=== PATIENT | female | born 1970 | race Caucasian/White ===

== ENCOUNTER 2016-06-11 04:59 | Inpatient (IN) | payer OTHER ==
[~2016-06-11] VITALS: Ht 162.6 cm; Wt 95.4 kg
[2016-06-11 05:49] LABS: CONTROL LINE HCG INT CTR LINE PRESENT
[2016-06-11 05:50] LABS: BASO # 0.1 K/mm3 (0.0-0.2); BASO % 0.5 % (0.0-1.0); EOS # 0.1 K/mm3 (0.0-0.50); LARGE UNSTAINED CELL # 0.1 K/mm3 (0.0-0.4); LARGE UNSTAINED CELL % 1.2 % (0.0-4.0); LYMPH # 1.7 K/mm3 (1.5-4.5); MEAN CORPUSCULAR HEMOGLOBIN 27.7 pg (27.0-33.0); MEAN CORPUSCULAR HGB CONC 32.8 g/dl (32.0-36.5); MEAN CORPUSCULAR VOLUME 84.3 fl (80.0-96.0); MONO # 0.5 K/mm3 (0.0-0.8); NEUTROPHILS % 78.2 % (36.0-66.0); PLATELET COUNT, AUTOMATED 399 k/mm3 (150-450); WHITE BLOOD COUNT 11.6 K/mm3 (4.0-10.0)
[2016-06-11 05:58] LABS: ALBUMIN 3.9 GM/DL (3.2-5.2); ALBUMIN/GLOBULIN RATIO 1.18 (1.00-1.93); ALKALINE PHOSPHATASE 104 U/L (45-117); ALT/SGPT 31 U/L (12-78); ANION GAP 9 MEQ/L (8-16); AST/SGOT 22 U/L (15-37); BILIRUBIN,DIRECT 0.2 MG/DL (0.0-0.2); BILIRUBIN,TOTAL 0.4 MG/DL (0.2-1.0); BLOOD UREA NITROGEN 9 MG/DL (7-18); CALCIUM LEVEL 9.1 MG/DL (8.5-10.1); CARBON DIOXIDE LEVEL 26 MEQ/L (21-32); CHLORIDE LEVEL 108 MEQ/L (98-107); GLOMERULAR FILTRATION RATE > 60.0 (>58); GLUCOSE, FASTING 112 MG/DL (70-105); SODIUM LEVEL 143 MEQ/L (136-145); TOTAL PROTEIN 7.2 GM/DL (6.4-8.2)
[2016-06-11] MEDS ORDERED: NS 1,000 ML IV ONE (06:00)
[2016-06-11 07:38] LABS: METHADONE URINE NEGATIVE (NEGATIVE)
[2016-06-11] MEDS ORDERED: LORazepam 2 MG/ML VIAL (J2060) IV STA ×2 (07:47→07:48)
[2016-06-11] MEDS: BACLOFEN 10 MG TAB PO SCH ×5 (09:00→20:30)
[2016-06-11] MEDS ORDERED: GABA600T PO (09:26)
[2016-06-11] MEDS ORDERED: AMIT25TA PO (09:26)
[2016-06-11] MEDS ORDERED: RIZA10TA2 PO (09:26)
[2016-06-11] MEDS ORDERED: RANI150T PO (09:26)
[2016-06-11] MEDS ORDERED: VYVA50CA PO (09:26)
[2016-06-11] MEDS ORDERED: LEVOTAB18 PO (09:26)
[2016-06-11] MEDS ORDERED: BACL-67 PO (09:26)
[2016-06-11] MEDS ORDERED: CYMB60CA3 PO (09:26)
[2016-06-11] MEDS ORDERED: TRAM50TA2 PO (09:26)
[2016-06-11] MEDS ORDERED: OMEP40CA2 PO (09:30)
[2016-06-11] MEDS ORDERED: ACETAMINOPHEN TAB 650MG DOSE (2X325MG) PO PRN (09:45)
--- NOTE | 2016-06-11 10:39 | ECGEPIP ---
Stationary ECG Study [facility] - ED Test Date: 2016-06-11 Pat Name: GENNARO OSEI Department: Room: - Gender: F Sound Ranging Crewmember: ConnellyB: 1970 Requested By: JULITO Hassan Order Number: [id number] Reading MD: Adán Aggarwal Measurements Intervals [place] Rate: 87 P: 50 ND: 176 QRS: 25 QRSD: 92 T: 30 QT: 353 QTc: 427 Interpretive Statements SINUS RHYTHM Electronically Signed On 06-11-2016 10:39:06 EDT by Adán Aggarwal
[2016-06-11 15:30] VITALS: BP 119/77
[2016-06-11] MEDS: ENOXAPARIN 40 MG/0.4 ML SYRINGE (J1650) SC SCH (15:57)
[2016-06-11] MEDS: NS 1,000 ML IV SCH ×3 (15:57→23:07)
[2016-06-11] MEDS: OMEPRAZOLE 20 MG CAP PO SCH (15:58)
[2016-06-11] MEDS: LORazepam 2 MG/ML VIAL (J2060) IV PRN ×2 (15:58→20:30)
[2016-06-11] MEDS: traMADol 50 MG TAB PO PRN ×2 (16:58→23:07)
[2016-06-11] MEDS ORDERED: traMADol 50 MG TAB PO PRN (17:00)
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
[2016-06-11 19:53] VITALS: BP 130/73
[2016-06-11] MEDS ORDERED: AMITRIPTYLINE 25 MG TAB PO SCH ×2 (21:00)
[2016-06-11 23:59] VITALS: BP 144/76
[2016-06-12] MEDS: LORazepam 2 MG/ML VIAL (J2060) IV PRN ×3 (01:46→12:35)
[2016-06-12 04:45] VITALS: BP 133/69
[2016-06-12] MEDS: NS 1,000 ML IV SCH ×2 (05:41→12:24)
[2016-06-12] MEDS: traMADol 50 MG TAB PO PRN ×2 (05:46→12:25)
[2016-06-12 05:49] LABS: MEAN CORPUSCULAR HEMOGLOBIN 28.7 pg (27.0-33.0); MEAN CORPUSCULAR HGB CONC 33.7 g/dl (32.0-36.5); MEAN CORPUSCULAR VOLUME 85.2 fl (80.0-96.0); RED CELL DISTRIBUTION WIDTH 13.3 % (11.5-14.5); WHITE BLOOD COUNT 6.6 K/mm3 (4.0-10.0)
[2016-06-12 05:51] LABS: BLOOD UREA NITROGEN 12 MG/DL (7-18); CREATININE FOR GFR 0.73 MG/DL (0.55-1.02); GLUCOSE, FASTING 113 MG/DL (70-105); MAGNESIUM LEVEL 1.8 MG/DL (1.8-2.4); POTASSIUM SERUM 3.7 MEQ/L (3.5-5.1); SODIUM LEVEL 143 MEQ/L (136-145)
[2016-06-12 06:01] LABS: CALCIUM LEVEL 7.8 MG/DL (8.5-10.1)
[2016-06-12 08:00] VITALS: BP 121/78
[2016-06-12] MEDS: OMEPRAZOLE 20 MG CAP PO SCH (08:41)
[2016-06-12] MEDS: ENOXAPARIN 40 MG/0.4 ML SYRINGE (J1650) SC SCH (08:41)
[2016-06-12] MEDS: BACLOFEN 10 MG TAB PO SCH ×3 (08:41→16:57)
[2016-06-12 09:03] LABS: ANION GAP 9 MEQ/L (8-16); CARBON DIOXIDE LEVEL 20 MEQ/L (21-32); CHLORIDE LEVEL 114 MEQ/L (98-107)
[2016-06-12 12:00] VITALS: BP 119/69
--- NOTE | 2016-06-12 15:38 | DSES ---
DATE OF ADMISSION: 06/11/2016 DATE OF DISCHARGE: 06/12/2016 PRIMARY CARE PROVIDER: Mari Martinez, nurse practitioner PAIN MANAGEMENT: Dr. Hawkins PSYCHIATRIST: Dr. Hawkins at [facility]. INPATIENT PSYCHIATRIST: Dr. Schaefer FINAL DIAGNOSES: 1. Encephalopathy secondary to medication induced. 2. Chronic pain. 3. Anxiety. 4. Posttraumatic stress disorder. 5. Grisel. HISTORY OF PRESENT ILLNESS: This is a 46-year-old female patient with underlying medical history of posttraumatic stress disorder, anxiety, chronic back pain with right arm nerve injury in the past, questionable history of attention deficit hyperactivity disorder. Patient was a poor historian and was brought in by police. Story taken from the patient. As per patient, she was driving home from work last night, did not feel right. 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 Eventually, the police brought her to the hospital. As per patient, the police found the patient's Vyvanse, tramadol, and also purple pill that the patient identified as Hydroxycut [id number] for weight loss. The patient states that she has been inconsistently taking her Vyvanse and started taking it yesterday because she wanted to perform better at work. Subsequently, she has not been feeling so well. In the emergency room, she was very anxious and restless with dilated pupils. Urine toxicology was obtained showing amphetamine and also benzodiazepine. Social work was consulted. Poison Control was contacted by the emergency room doctors, recommending monitoring for 12-24 hours and check creatine phosphokinases (CPKs). Otherwise, the patient denies any chest pain, pressure or discomfort, fevers or chills. Currently comfortable. HOSPITAL COURSE: The patient was admitted to the hospital. Telemetry, EKGs, and creatine phosphokinase (CPKs) were followed. Psychiatrist was consulted to see if patient needs inpatient mental health. Patient denies any suicidality but does report having depression. Patient's medication was initially held. Case discussed with Dr. Schaefer, psychiatrist. As per Dr. Schaefer, patient can be discharged with outpatient followup with primary care provider and psychiatrist in 72 hours to determine which medication is appropriate for the patient to take. From his psychiatric perspective, the patient is safe for discharge. Subsequently, arrangements are made for the patient to be discharged. VITAL SIGNS: Temperature 96.7, pulse 77, respiratory rate 18, blood pressure 119/69, pulse oximetry 100% on room air. LABORATORY DATA: WBC 6.6, hemoglobin and hematocrit 11.2/33.4, platelets 319. Chemistry: Sodium 143, potassium 3.7, chloride 114, bicarbonate 20, BUN 12, creatinine 0.73. Cardiac enzymes negative times three. HOME MEDICATIONS: The patient is on: - amitriptyline 25 mg by mouth at bedtime - Baclofen 20 mg by mouth four times a day - Cymbalta 60 mg by mouth daily - gabapentin 600 mg by mouth three times a day - control pill by mouth daily - omeprazole 40 mg by mouth daily - ranitidine 150 mg one tablet by mouth twice a day - tramadol 100 mg by mouth every six hours as needed - Vyvanse 50 mg by mouth daily, instructed to hold Vyvanse until sees primary care provider DISCHARGE INSTRUCTIONS: The patient is instructed to followup with primary care provider and psychiatrist in 72 hours. Return to the hospital if symptoms worsen or having thoughts of hurting herself or other people or with worsening depression. The patient is instructed to avoid driving.
== END 2016-06-12 17:12 | disposition home or self-care (01) | DRG 816 ==
LOC: EDBD 04:59 → M ED 08:52 → M ED INP 09:44 → M PCU 15:42
PROVIDERS: ADMIT Hospitalist; ATTEND Hospitalist
DX: T65.891A Toxic effect of other specified substances, accidental (unintentional), initial encounter (principal); G93.41 Metabolic encephalopathy; F41.9 Anxiety disorder, unspecified; F43.10 Post-traumatic stress disorder, unspecified; F30.9 Manic episode, unspecified; M54.5 Low back pain; Z79.899 Other long term (current) drug therapy

== ENCOUNTER → 2016-08-05 | Outpatient (CLI) | payer OTHER ==
[~2016-08-05] MED LIST: AMIT25TA PO; BACL-67 PO; CYMB60CA3 PO; GABA600T PO; LEVOTAB18 PO; OMEP40CA2 PO; RANI150T PO; RIZA10TA2 PO; TRAM50TA2 PO; VYVA50CA PO
[2016-08-05 15:11] LABS: BASO % 0.5 % (0.0-1.0); EOS # 0.3 K/mm3 (0.0-0.50); EOS % 4.7 % (0.0-3.0); LARGE UNSTAINED CELL # 0.1 K/mm3 (0.0-0.4); LARGE UNSTAINED CELL % 1.7 % (0.0-4.0); LYMPH # 2.1 K/mm3 (1.5-4.5); LYMPH % 27.1 % (24.0-44.0); MEAN CORPUSCULAR HEMOGLOBIN 29.1 pg (27.0-33.0); MEAN CORPUSCULAR VOLUME 85.6 fl (80.0-96.0); MONO # 0.4 K/mm3 (0.0-0.8); MONO % 5.9 % (0.0-5.0); NEUTROPHILS # 4.4 K/mm3 (1.8-7.7); NEUTROPHILS % 60.1 % (36.0-66.0); PLATELET COUNT, AUTOMATED 333 k/mm3 (150-450); RED CELL DISTRIBUTION WIDTH 13.7 % (11.5-14.5); WHITE BLOOD COUNT 7.4 K/mm3 (4.0-10.0)
[2016-08-05 15:27] LABS: ALBUMIN 3.6 GM/DL (3.2-5.2); ALBUMIN/GLOBULIN RATIO 1.06 (1.00-1.93); ALKALINE PHOSPHATASE 132 U/L (45-117); ALT/SGPT 38 U/L (12-78); ANION GAP 11 MEQ/L (8-16); AST/SGOT 21 U/L (15-37); BILIRUBIN,TOTAL 0.2 MG/DL (0.2-1.0); BLOOD UREA NITROGEN 21 MG/DL (7-18); CALCIUM LEVEL 8.9 MG/DL (8.5-10.1); CARBON DIOXIDE LEVEL 24 MEQ/L (21-32); CHLORIDE LEVEL 105 MEQ/L (98-107); CREATININE FOR GFR 0.74 MG/DL (0.55-1.02); GLOMERULAR FILTRATION RATE > 60.0 (>58); GLUCOSE, FASTING 111 MG/DL (70-105); POTASSIUM SERUM 4.1 MEQ/L (3.5-5.1); SODIUM LEVEL 140 MEQ/L (136-145)
== END ==
LOC: M LAB 13:49
PROVIDERS: ATTEND Nurse Practitioner Family
DX: Z00.00 Encounter for general adult medical examination without abnormal findings (principal)

== ENCOUNTER → 2016-12-12 | Outpatient (CLI) | payer OTHER ==
[~2016-12-12] MED LIST changes: -BACL-67 PO; +BACL1TAB9 PO; -VYVA50CA PO; +VYVA50CA4 PO
--- NOTE | 2016-12-12 11:53 | REPMRS ---
Patient History The patient states she had a clinical breast exam in 10/2016. No known family history of cancer. Taking hormonal contraceptives for 18 years. Digital Woman Screen Mammo: December 12, 2016 - Exam #: [id number] Bilateral CC and MLO view(s) were taken. Technologist: Humaira Torres, Technologist FINDINGS: There are scattered fibroglandular densities. There is no evidence of cancer on this mammogram. ASSESSMENT: BI-RADS/ACR category 2 mammogram. Benign finding(s). Recommendation Routine screening mammogram of both breasts in 1 year (for women over age 40). This mammogram was interpreted with the aid of an FDA-approved computer-aided dectection system. Electronically Signed By: Teja Pantoja MD 12/12/16 [id number]
== END ==
LOC: M WHC 10:53
PROVIDERS: ATTEND Midwife
DX: Z12.31 Encounter for screening mammogram for malignant neoplasm of breast (principal)

== ENCOUNTER → 2017-01-28 | Outpatient (REF) | LOC: M LAB 14:12 | PROVIDERS: ATTEND Nurse Practitioner Adult Health | DX: Z00.00 Encounter for general adult medical examination without abnormal findings (principal) ==

== ENCOUNTER 2017-02-03 19:12 | Emergency (ER) | payer OTHER ==
[~2017-02-03] VITALS: Ht 162.6 cm; Wt 100.0 kg
[2017-02-03] MEDS ORDERED: ZYRT10CA PO (19:34)
[2017-02-03] MEDS ORDERED: CELE1CAP88 PO (19:34)
[2017-02-03] MEDS ORDERED: B121000T PO (19:34)
[2017-02-03] MEDS ORDERED: TOPA50TA8 PO (19:34)
[2017-02-03 21:10] VITALS: BP 148/86
== END 2017-02-03 21:11 | disposition home or self-care (01) ==
LOC: M ED 19:12
DX: M54.42 Lumbago with sciatica, left side (principal)
CPT/HCPCS: 96372; 99283; J3360

== ENCOUNTER → 2017-03-05 | Outpatient (CLI) | payer OTHER ==
[~2017-03-05] MED LIST changes: +B121000T PO; +CELE1CAP88 PO; +TOPA50TA8 PO; +ZYRT10CA PO
== END ==
LOC: M LAB 11:53
PROVIDERS: ATTEND Nurse Practitioner Family
DX: L65.9 Nonscarring hair loss, unspecified (principal)

== ENCOUNTER → 2017-05-02 | Outpatient (REF) | payer OTHER | LOC: M LAB REF 15:12 | DX: J11.1 Influenza due to unidentified influenza virus with other respiratory manifestations (principal) ==

== ENCOUNTER 2017-05-19 09:04 | Emergency (ER) | payer OTHER | END 2017-05-19 11:48 | disposition home or self-care (01) | LOC: M ED 09:04 | DX: R09.1 Pleurisy (principal); H68.002 Unspecified Eustachian salpingitis, left ear; G89.29 Other chronic pain; M54.9 Dorsalgia, unspecified; G43.909 Migraine, unspecified, not intractable, without status migrainosus; Z79.899 Other long term (current) drug therapy | CPT/HCPCS: 71046 ==

== ENCOUNTER → 2017-07-04 | Outpatient (CLI) | payer OTHER ==
[2017-07-04 14:14] LABS: BASO # 0.1 10^3/uL (0.0-0.2); BASO % 0.5 % (0.0-1.0); EOS # 0.3 10^3/uL (0.0-0.50); EOS % 3.2 % (0.0-3.0); HEMATOCRIT 40.4 % (36.0-47.0); IMMATURE GRANULOCYTE % 0.4 % (0-3.0); LYMPH # 2.8 10^3/uL (1.5-4.5); LYMPH % 29.6 % (24.0-44.0); MEAN CORPUSCULAR HGB CONC 32.2 g/dl (32.0-36.5); MEAN CORPUSCULAR VOLUME 86.9 fl (80.0-96.0); MONO # 0.8 10^3/uL (0.0-0.8); MONO % 8.6 % (0.0-5.0); NEUTROPHILS # 5.5 10^3/uL (1.8-7.7); NEUTROPHILS % 57.7 % (36.0-66.0); PLATELET COUNT, AUTOMATED 398 10^3/uL (150-450); RED BLOOD COUNT 4.65 10^6/uL (4.00-5.40); WHITE BLOOD COUNT 9.5 10^3/uL (4.0-10.0)
[2017-07-04 14:16] LABS: APPEARANCE, URINE CLEAR (CLEAR); BACTERIA, URINE AUTO 2+ (NEGATIVE); BILIRUBIN, URINE AUTO NEGATIVE (NEGATIVE); BLOOD, URINE BLOOD NEGATIVE (NEGATIVE); COLOR, URINE COLORLESS (YELLOW); GLUCOSE, URINE (UA) AUTO NEGATIVE (NEGATIVE); KETONE, URINE AUTO NEGATIVE (NEGATIVE); LEUKOCYTE ESTERASE, URINE AUTO NEGATIVE (NEGATIVE); NITRITE, URINE AUTO NEGATIVE (NEGATIVE); PROTEIN, URINE AUTO NEGATIVE (NEGATIVE); RBC, URINE AUTO 1 /HPF (0-3); SPECIFIC GRAVITY URINE AUTO 1.002 (1.002-1.035); SQUAMOUS EPITHELIAL CELL UR AU 0 /HPF (0-6); UROBILINOGEN, URINE AUTO 0.2 mg/dL (0.0-2.0); WBC, URINE AUTO 0 /HPF (0-3)
[2017-07-04 14:50] LABS: ALBUMIN 3.7 GM/DL (3.2-5.2); ALBUMIN/GLOBULIN RATIO 1.16 (1.00-1.93); ALKALINE PHOSPHATASE 91 U/L (45-117); ALT/SGPT 29 U/L (12-78); ANION GAP 6 MEQ/L (8-16); AST/SGOT 16 U/L (7-37); BILIRUBIN,TOTAL 0.2 MG/DL (0.2-1.0); BLOOD UREA NITROGEN 14 MG/DL (7-18); CALCIUM LEVEL 8.8 MG/DL (8.5-10.1); CARBON DIOXIDE LEVEL 26 MEQ/L (21-32); CHLORIDE LEVEL 108 MEQ/L (98-107); GLOMERULAR FILTRATION RATE > 60.0 (>58); GLUCOSE, FASTING 87 MG/DL (70-100); POTASSIUM SERUM 4.7 MEQ/L (3.5-5.1); SODIUM LEVEL 140 MEQ/L (136-145); TOTAL PROTEIN 6.9 GM/DL (6.4-8.2)
[2017-07-04 14:56] LABS: HEPATITIS B SURFACE ANTIBODY NEGATIVE (POSITIVE)
[2017-07-04 15:06] LABS: HEPATITIS B SURFACE ANTIGEN NEGATIVE (NEGATIVE)
[2017-07-04 15:35] LABS: HEPATITIS C VIRUS ABY INDEX < 0.0 INDEX (<0.8)
[2017-07-05 08:06] LABS: HEPATITIS A IgG TOTAL Positive (Negative)
== END ==
LOC: M LAB 13:27
DX: Z51.81 Encounter for therapeutic drug level monitoring (principal); Z79.891 Long term (current) use of opiate analgesic; H65.23 Chronic serous otitis media, bilateral; Z04.9 Encounter for examination and observation for unspecified reason
CPT/HCPCS: 80053

== ENCOUNTER → 2018-02-19 | Outpatient (CLI) | payer OTHER | LOC: M RAD 15:23 | DX: Z12.31 Encounter for screening mammogram for malignant neoplasm of breast (principal) | CPT/HCPCS: 77067 ==

== ENCOUNTER 2018-09-08 12:15 | Outpatient (RCR) | payer MEDICAID, OTHER ==
[~2018-09-08 12:15] MED LIST changes: +AUGM875T28 PO; +DIFL150T PO; -GABA600T PO; +GABA600T4 PO; +NEUR800T PO; +PRED20TA PO; +TOPA100T12 PO
== END 2018-09-13 ==
LOC: M PT 12:15
PROVIDERS: ATTEND Anesthesiology Pain Medicine
DX: M79.7 Fibromyalgia (principal)

== ENCOUNTER 2018-09-24 12:50 | Outpatient (RCR) | payer OTHER | END 2018-10-14 | LOC: M PT 12:50 | PROVIDERS: ATTEND Anesthesiology Pain Medicine | DX: Z51.89 Encounter for other specified aftercare (principal); M79.10 Myalgia, unspecified site ==

== ENCOUNTER → 2018-12-07 | Outpatient (REF) | payer OTHER ==
[2018-12-07 22:01] LABS: INFLUENZA A AMPLIFICATION NEGATIVE (NEGATIVE); INFLUENZA B AMPLIFICATION NEGATIVE (NEGATIVE)
== END ==
LOC: M LAB REF 14:05
PROVIDERS: ATTEND Physician Assistant Medical
DX: J11.1 Influenza due to unidentified influenza virus with other respiratory manifestations (principal)

== ENCOUNTER → 2019-01-15 | Outpatient (CLI) | payer OTHER ==
[~2019-01-15] MED LIST changes: -OMEP40CA2 PO; +OMEP40CA97 PO
[2019-01-15 12:21] LABS: APPEARANCE, URINE HAZY (CLEAR); BACTERIA, URINE AUTO 3+ (NEGATIVE); BILIRUBIN, URINE AUTO NEGATIVE (NEGATIVE); BLOOD, URINE BLOOD NEGATIVE (NEGATIVE); COLOR, URINE YELLOW (YELLOW); GLUCOSE, URINE (UA) AUTO NEGATIVE (NEGATIVE); KETONE, URINE AUTO NEGATIVE (NEGATIVE); LEUKOCYTE ESTERASE, URINE AUTO NEGATIVE (NEGATIVE); MUCUS, URINE SMALL (NEGATIVE); NITRITE, URINE AUTO NEGATIVE (NEGATIVE); PROTEIN, URINE AUTO NEGATIVE (NEGATIVE); RBC, URINE AUTO 4 /HPF (0-3); SPECIFIC GRAVITY URINE AUTO 1.018 (1.002-1.035); SQUAMOUS EPITHELIAL CELL UR AU 8 /HPF (0-6); UROBILINOGEN, URINE AUTO 0.2 mg/dL (0.0-2.0); WBC, URINE AUTO 3 /HPF (0-3)
[2019-01-15 12:26] LABS: BASO # 0.1 10^3/uL (0.0-0.2); BASO % 0.7 % (0.0-1.0); EOS # 0.4 10^3/uL (0.0-0.5); EOS % 6.2 % (0.0-3.0); LYMPH # 2.6 10^3/uL (1.5-5.0); LYMPH % 37.4 % (24.0-44.0); MEAN CORPUSCULAR HEMOGLOBIN 27.1 pg (27.0-33.0); MEAN CORPUSCULAR VOLUME 87.7 fl (80.0-96.0); MONO # 0.8 10^3/uL (0.0-0.8); MONO % 11.3 % (0.0-5.0); NEUTROPHILS # 3.1 10^3/uL (1.5-8.5); NEUTROPHILS % 44.3 % (36.0-66.0); PLATELET COUNT, AUTOMATED 359 10^3/uL (150-450); RED BLOOD COUNT 4.79 10^6/uL (4.00-5.40); WHITE BLOOD COUNT 6.9 10^3/uL (4.0-10.0)
[2019-01-15 12:52] LABS: HEMOGLOBIN A1c 5.5 %
[2019-01-15 13:15] LABS: ALBUMIN 3.3 GM/DL (3.2-5.2); ALT/SGPT 28 U/L (12-78); BILIRUBIN,TOTAL 0.3 MG/DL (0.2-1.0); BLOOD UREA NITROGEN 13 MG/DL (7-18); CALCIUM LEVEL 8.9 MG/DL (8.5-10.1); CARBON DIOXIDE LEVEL 26 MEQ/L (21-32); CHLORIDE LEVEL 107 MEQ/L (98-107); CHOLESTEROL LEVEL 231 MG/DL (<200); CHOLESTEROL RISK RATIO 4.812 (<5); CREATININE FOR GFR 0.74 MG/DL (0.55-1.30); FREE T4 0.92 NG/DL (0.76-1.46); GLOMERULAR FILTRATION RATE > 60.0 (>58); GLUCOSE, FASTING 81 MG/DL (70-100); HDL CHOLESTEROL 48 MG/DL (>40); LDL CHOLESTEROL 162 MG/DL (<100); NON-HDL-C 183 MG/DL; POTASSIUM SERUM 4.7 MEQ/L (3.5-5.1); SODIUM LEVEL 138 MEQ/L (136-145); TOTAL 25(OH) VITAMIN D 42.9 NG/ML (30.0-100.0); TOTAL PROTEIN 6.6 GM/DL (6.4-8.2); TRIGLYCERIDES LEVEL 103 MG/DL (<150)
== END ==
LOC: M LAB 11:44
PROVIDERS: ATTEND Nurse Practitioner Family
DX: Z13.9 Encounter for screening, unspecified (principal)

== ENCOUNTER → 2019-05-05 | Outpatient (CLI) | payer OTHER, SELFPAY ==
--- NOTE | 2019-05-05 13:59 | REPMRS ---
Patient History The patient states she had a clinical breast exam in 2018. No known family history of cancer. Taking hormonal contraceptives for 18 years. Digital Woman Screen Mammo: May 05, 2019 - Exam #: [id number] Bilateral CC and MLO view(s) were taken. Technologist: Debbie Chisholm, Technologist Prior study comparison: February 19, 2018, bilateral digital mammo screening bilat, performed at [facility]. December 12, 2016, digital woman screen mammo performed at [facility]. FINDINGS: There are scattered fibroglandular densities. There has been no change in the appearance of the mammogram from the prior studies. There is a mild amount of scattered fibroglandular density which is fairly symmetric. There is no interval development of dominant mass, architectural distortion, or grouped microcalcification suggestive of malignancy. 3-D tomosynthesis shows no additional findings. Assessment: BI-RADS/ACR category 1 mammogram. Negative Mammogram. Recommendation Routine screening mammogram of both breasts in 1 year (for women over age 40). This patient's Lifetime Breast Cancer Risk is estimated at 12.8 %. This mammogram was interpreted with the aid of an FDA-approved computer-aided dectection system. Electronically Signed By: Maurice Astudillo MD 05/05/19 [id number]
== END ==
LOC: M WHC 12:50
PROVIDERS: ATTEND Physician Assistant
DX: Z12.31 Encounter for screening mammogram for malignant neoplasm of breast (principal); Z79.3 Long term (current) use of hormonal contraceptives

== ENCOUNTER → 2019-06-24 | Outpatient (REF) | payer OTHER, MEDICAID ==
[2019-06-24 17:25] LABS: BASO % 0.5 % (0.0-1.0); EOS # 0.3 10^3/uL (0.0-0.5); EOS % 4.6 % (0.0-3.0); HEMATOCRIT 43.7 % (36.0-47.0); HEMOGLOBIN 13.9 g/dl (12.0-15.5); LYMPH # 2.7 10^3/uL (1.5-5.0); MEAN CORPUSCULAR HEMOGLOBIN 27.3 pg (27.0-33.0); MEAN CORPUSCULAR HGB CONC 31.8 g/dl (32.0-36.5); MEAN CORPUSCULAR VOLUME 85.7 fl (80.0-96.0); MONO # 0.6 10^3/uL (0.0-0.8); MONO % 9.9 % (0.0-5.0); NEUTROPHILS # 2.7 10^3/uL (1.5-8.5); NEUTROPHILS % 42.7 % (36.0-66.0); PLATELET COUNT, AUTOMATED 423 10^3/uL (150-450); WHITE BLOOD COUNT 6.3 10^3/uL (4.0-10.0)
[2019-06-24 17:30] LABS: ALBUMIN 3.4 GM/DL (3.2-5.2); ALT/SGPT 29 U/L (12-78); BILIRUBIN,TOTAL 0.4 MG/DL (0.2-1.0); BLOOD UREA NITROGEN 15 MG/DL (7-18); CALCIUM LEVEL 8.8 MG/DL (8.5-10.1); CARBON DIOXIDE LEVEL 28 MEQ/L (21-32); CHLORIDE LEVEL 103 MEQ/L (98-107); CHOLESTEROL LEVEL 250 MG/DL (<200); CHOLESTEROL RISK RATIO 5.208 (<5); CREATININE FOR GFR 0.94 MG/DL (0.55-1.30); GLOMERULAR FILTRATION RATE > 60.0 (>58); GLUCOSE, FASTING 82 MG/DL (70-100); HDL CHOLESTEROL 48 MG/DL (>40); LDL CHOLESTEROL 183 MG/DL (<100); NON-HDL-C 202 MG/DL; POTASSIUM SERUM 4.1 MEQ/L (3.5-5.1); SODIUM LEVEL 138 MEQ/L (136-145); TOTAL PROTEIN 6.7 GM/DL (6.4-8.2); TRIGLYCERIDES LEVEL 95 MG/DL (<150)
== END ==
LOC: M LAB REF 16:54
PROVIDERS: ATTEND Nurse Practitioner Family
DX: E78.5 Hyperlipidemia, unspecified (principal); Z13.9 Encounter for screening, unspecified; K21.9 Gastro-esophageal reflux disease without esophagitis

== ENCOUNTER 2019-09-07 21:33 | Observation (INO) | payer MEDICAID, OTHER ==
[~2019-09-07 21:33] MED LIST changes: -AMIT25TA PO; +AMIT25TA17 PO
[2019-09-07] MEDS ORDERED: NALOXONE 2MG/2ML SYRINGE (J2310 PER 1MG) As Ordered ONE (21:40)
[2019-09-07] MEDS ORDERED: NALOXONE 2MG/2ML SYRINGE (J2310 PER 1MG) IV STA (21:41)
[2019-09-07] MEDS ORDERED: ONDANSETRON 4MG/2ML VIAL As Ordered ONE (21:43)
[2019-09-07] MEDS ORDERED: HALOPERIDOL 5MG/ML VIAL (J1630 PER 1) IM STA ×2 (21:51→22:24)
[2019-09-07] MEDS ORDERED: diphenhydrAMINE 50MG/ML VIAL (J1200) IM STA (21:51)
[2019-09-07] MEDS ORDERED: NS 1,000 ML IV ONE (22:00)
[2019-09-07 22:11] LABS: BASO # 0.1 10^3/uL (0.0-0.2); BASO % 0.3 % (0.0-1.0); EOS # 0.6 10^3/uL (0.0-0.5); EOS % 4.1 % (0.0-3.0); HEMATOCRIT 44.9 % (36.0-47.0); HEMOGLOBIN 14.4 g/dl (12.0-15.5); LYMPH # 3.4 10^3/uL (1.5-5.0); LYMPH % 22.4 % (24.0-44.0); MEAN CORPUSCULAR HEMOGLOBIN 27.2 pg (27.0-33.0); MEAN CORPUSCULAR HGB CONC 32.1 g/dl (32.0-36.5); MEAN CORPUSCULAR VOLUME 84.9 fl (80.0-96.0); MONO # 0.9 10^3/uL (0.0-0.8); MONO % 6.2 % (0.0-5.0); NEUTROPHILS % 66.7 % (36.0-66.0); PLATELET COUNT, AUTOMATED 399 10^3/uL (150-450); RED BLOOD COUNT 5.29 10^6/uL (4.00-5.40)
[2019-09-07 22:40] LABS: BILIRUBIN,DIRECT 0.2 MG/DL (0.0-0.2); BILIRUBIN,TOTAL 0.5 MG/DL (0.2-1.0); CALCIUM LEVEL 9.6 MG/DL (8.5-10.1); CREATININE FOR GFR 1.23 MG/DL (0.55-1.30); ETHYL ALCOHOL (ETHANOL) 0.005 % (0.000-0.010); FREE THYROXINE INDEX 3.9 % (1.3-4.8); GLOMERULAR FILTRATION RATE 49.4 (>58); POTASSIUM SERUM 4.3 MEQ/L (3.5-5.1); THYROID STIMULATING HORMONE 3.45 uIU/ML (0.358-3.740); THYROXINE (T4) 15.1 UG/DL (4.5-12.0); TOTAL PROTEIN 7.5 GM/DL (6.4-8.2)
[2019-09-07] MEDS ORDERED: chlorproMAZINE INJ 50MG/2ML AMP (J3230) IM STA (23:14)
[2019-09-07 23:33] LABS: AMPHETAMINES LEVEL URINE POSITIVE (NEGATIVE); BARBITURATES URINE NEGATIVE (NEGATIVE); BENZODIAZEPINES URINE POSITIVE (NEGATIVE); CANNABINOIDS URINE NEGATIVE (NEGATIVE); COCAINE METABOLITE URINE NEGATIVE (NEGATIVE); METHADONE URINE NEGATIVE (NEGATIVE); OPIATES URINE POSITIVE (NEGATIVE); PHENCYCLIDINE URINE NEGATIVE (NEGATIVE)
[2019-09-07] MEDS ORDERED: ATOR1TAB19 PO (23:35)
[2019-09-07] MEDS ORDERED: CELE1CAP11 PO (23:35)
[2019-09-07] MEDS ORDERED: BACLOFEN PO (23:35)
[2019-09-07] MEDS ORDERED: OMEP-221 PO (23:35)
[2019-09-07] MEDS ORDERED: GABA-845 PO (23:38)
[2019-09-07] MEDS ORDERED: AMIT25TA17 PO (23:38)
[2019-09-07] MEDS ORDERED: DULO1CAP6 PO (23:38)
[2019-09-07] MEDS ORDERED: PRED20TA PO (23:38)
[2019-09-07] MEDS ORDERED: TRAM50TA2 PO (23:38)
[2019-09-07] MEDS ORDERED: RIZA10TA58 PO (23:38)
[2019-09-08] MEDS ORDERED: ADDE30CA3 PO (00:11)
[2019-09-08] MEDS ORDERED: CLON1TAB8 PO (00:11)
[2019-09-08] MEDS ORDERED: BACL1TAB9 PO (00:11)
[2019-09-08] MEDS ORDERED: COMMENTS (01:02)
--- NOTE | 2019-09-08 01:05 | REPVR ---
PROCEDURE INFORMATION: Exam: CT Head Without Contrast Exam date and time: 09/07/2019 11:55 PM Age: 49 years old Clinical indication: Altered mental status/memory loss; Confusion or disorientation; Additional info: AMS TECHNIQUE: Imaging protocol: Computed tomography of the head without contrast. Axial and coronal reformatted images were created and reviewed. Radiation optimization: All CT scans at this facility use at least one of these dose optimization techniques: automated exposure control; mA and/or kV adjustment per patient size (includes targeted exams where dose is matched to clinical indication); or iterative reconstruction. COMPARISON: No relevant prior studies available. FINDINGS: Brain: No CT evidence of acute intracranial hemorrhage or acute territorial infarction. No significant mass effect or midline shift. Basal cisterns patent. Ventricles: Normal in size and configuration. Bones/joints: No acute osseous abnormality. Sinuses: Grossly unremarkable. Mastoid air cells: Grossly unremarkable. Soft tissues: Grossly unremarkable. IMPRESSION: 1. No CT evidence of acute intracranial pathology. 2. Additional findings, as above. Electronically signed by: Lonny Nice On 09/08/2019 01:04:52 AM
[2019-09-08] MEDS ORDERED: ACETAMINOPHEN TAB 650MG DOSE (2X325MG) PO PRN (03:00)
[2019-09-08] MEDS ORDERED: D5W/0.9% SODIUM CHLORIDE 1,000 ML IV SCH (03:15)
--- NOTE | 2019-09-08 03:19 | HPEPDOC ---
General Date of Admission 09/08/19 Date of Service: Sep 08, 2019 Chief Complaint The patient is a 49-year-old female admitted with a reason for visit of AMS. Source: Family, EMS Exam Limitations: Clinical conditions, Intoxication Timing/Duration: 24 hours Severity: Mild Associated Symptoms: Unobtainable History of Present Illness Patient is 49 years old female with past medical history of substance abuse presented to the hospital with altered mental status secondary to intoxication. According to family patient developed bizarre behavior in the evening, she became agitated and talked nonsense. She was brought to the emergency room where she was agitated and restless. Patient was sedated with Haldol and Benadryl. Also she received a dose of Narcan. When I saw patient she was somnolent and not follows commands. Patient was found to have positive U tox for opioids, amphetamines and benzodiazepines Home Medications Scheduled Amitriptyline HCl (Amitriptyline HCl) 25 Mg Tablet, 25 MG PO QPM, (Reported) Atorvastatin Calcium (Atorvastatin Calcium) 10 Mg Tablet, 10 MG PO DAILY, (Reported) Celecoxib (Celecoxib) 400 Mg Capsule, 400 MG PO BID, (Reported) Dextroamphetamine/Amphetamine (Adderall Xr 30 mg Capsule) 30 Mg Cap.er.24h, 30 MG PO DAILY, (Reported) Duloxetine Hcl (Duloxetine HCl) 60 Mg Capsule.dr, 60 MG PO DAILY, (Reported) Gabapentin (Gabapentin) 400 Mg Capsule, 400 MG PO TID, (Reported) Omeprazole (Omeprazole) 40 Mg Capsule.dr, 40 MG PO DAILY, (Reported) Rizatriptan Benzoate (Rizatriptan) 10 Mg Tab.rapdis, 10 MG PO ASDIRECTED, (Reported) Scheduled PRN Baclofen (Baclofen) 20 Mg Tablet, 20 MG PO QID PRN for MUSCLE SPASMS, (Reported) Clonazepam (Clonazepam) 1 Mg Tablet, 1 MG PO BID PRN for ANXIETY/AGITATION, (R eported) Tramadol HCl (Tramadol HCl) 50 Mg Tablet, 50 MG PO Q4H PRN for pain, (Reported) Miscellaneous Medications [Comments] , (Reported) MED REC LYNN WITH EXTERNAL MED HISTORY AND PT'S BOTTLE'S BROUGHT IN BY SON Allergies Coded Allergies: Unobtainable (Unverified , 09/07/19) Past Medical History Medical History Polysubstance abuse Family History Unable to obtain due to somnolence of the patient Social History * Smoker: other (Unable to obtain due to somnolence of the patient) Alcohol: other (Unable to obtain due to somnolence of the patient) Drugs: heroin, other (amphetamines) A-FIB/CHADSVASC A-FIB History Current/History of A-Fib/PAF?: No Current PO Anticoag Therapy: No Review of Systems Constitutional: Reports: Lethargy, Other (Unable to obtain due to somnolence of the patient) Physical Examination General Exam: Positive: Other (somnolent) Eye Exam: Positive: Other Eye Symptoms (mydriasis bilaterally) ENT Exam: Positive: Atraumatic Neck Exam: Positive: Supple; Negative: JVD Chest Exam: Positive: Clear to auscultation Heart Exam: Positive: Rate Normal Telemetry: Positive: No significant arrhythmia Abdomen Exam: Positive: Normal bowel sounds Extremity Exam: Negative: Clubbing, Cyanosis Skin Exam: Positive: Nl turgor and temperature Neuro Exam: Positive: Reflexes 2+ Psych Exam: Positive: Other (somnolent) Vital Signs Vital Signs Date Time Temp Pulse Resp B/P (MAP) Pulse Ox O2 Delivery O2 Flow Rate FiO2 09/07/19 23:30 97.2 91 18 156/89 97 Laboratory Data Labs 24H Laboratory Tests 2 09/07/19 21:54: Immature Granulocyte % (Auto) 0.3, Neutrophils (%) (Auto) 66.7H, Lymphocytes (%) (Auto) 22.4L, Monocytes (%) (Auto) 6.2H, Eosinophils (%) (Auto) 4.1H, Basophils (%) (Auto) 0.3, Neutrophils # (Auto) 10.0H, Lymphocytes # (Auto) 3.4, Monocytes # (Auto) 0.9H, Eosinophils # (Auto) 0.6H, Basophils # (Auto) 0.1, Nucleated Red Blood Cells % (auto) 0.0, Anion Gap 8, Glomerular Filtration Rate 49.4L, Calcium Level 9.6, Total Bilirubin 0.5, Direct Bilirubin 0.2, Aspartate Amino Transf (AST/SGOT) 24, Alanine Aminotransferase (ALT/SGPT) 28, Alkaline Phosphatase 111, Total Creatine Kinase 160, Total Protein 7.5, Albumin 4.0, Albumin/Globulin Ratio 1.1L, Thyroid Stimulating Hormone (TSH) 3.450, Free Thyroxine Index 3.9, Thyroxine (T4) 15.1H, Triiodothyronine (T3) Uptake 26L, Ethyl Alcohol Level 0.005 09/07/19 22:50: Urine Opiates Screen POSITIVEH, Urine Methadone Screen NEGATIVE, Urine Barbiturates Screen NEGATIVE, Urine Phencyclidine Screen NEGATIVE, Urine Amphetamines Screen POSITIVEH, Urine Benzodiazepines Screen POSITIVEH, Urine Cocaine Metabolite Screen NEGATIVE, Urine Cannabinoids Screen NEGATIVE CBC/BMP Laboratory Tests 09/07/19 21:54 Assessment/Plan Patient is 49 years old female with past medical history of substance abuse presented to the hospital with altered mental status secondary to intoxication. According to family patient developed bizarre behavior in the evening, she became agitated and talked nonsense. She was brought to the emergency room where she was agitated and restless. Patient was sedated with Haldol and Benadryl. Also she received a dose of Narcan. When I saw patient she was somnolent and not follows commands. Patient was found to have positive U tox for opioids, amphetamines and benzodiazepines Problems (1) Acute metabolic encephalopathy Status: Acute Problem Text: Secondary to polypharmacy superimposed with polysubstance abuse CT head negative for stroke or acute bleed Neuro check every 4 hours Telemetry (2) Drug abuse Status: Acute Problem Text: U tox showed positive level of benzodiazepines, opioids, amphetamines. 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
[2019-09-08] MEDS ORDERED: ONDANSETRON 4MG/2ML VIAL IV ONE (03:45)
[2019-09-08 04:00] VITALS: BP 143/81
[2019-09-08 06:00] VITALS: BP 140/76
[2019-09-08] MEDS: HEPARIN SOD (PORCINE) 5000UNITS/ML 1ML VIAL/SYRINGE SC SCH ×2 (08:20→21:18)
[2019-09-08] MEDS: MULTIVITAMINS/MINERALS THERAP 1 TAB PO SCH (11:32)
[2019-09-08] MEDS: THIAMINE 100 MG TAB PO SCH (11:32)
[2019-09-08] MEDS: FOLIC ACID 1 MG TAB PO SCH (11:33)
[2019-09-08 14:00] VITALS: BP 129/87
[2019-09-08 22:00] VITALS: BP 127/77
[2019-09-09 06:00] VITALS: BP 119/66
[2019-09-09] MEDS ORDERED: CIPROFLOXACIN 500MG TABLET PO SCH (06:00)
[2019-09-09 06:48] LABS: BASO % 0.5 % (0.0-1.0); EOS # 0.4 10^3/uL (0.0-0.5); EOS % 6.1 % (0.0-3.0); HEMATOCRIT 40.3 % (36.0-47.0); HEMOGLOBIN 12.8 g/dl (12.0-15.5); LYMPH # 2.6 10^3/uL (1.5-5.0); LYMPH % 40.1 % (24.0-44.0); MEAN CORPUSCULAR HEMOGLOBIN 27.1 pg (27.0-33.0); MEAN CORPUSCULAR HGB CONC 31.8 g/dl (32.0-36.5); MEAN CORPUSCULAR VOLUME 85.2 fl (80.0-96.0); MONO # 0.4 10^3/uL (0.0-0.8); MONO % 6.7 % (0.0-5.0); NEUTROPHILS % 46.4 % (36.0-66.0); PLATELET COUNT, AUTOMATED 362 10^3/uL (150-450); RED BLOOD COUNT 4.73 10^6/uL (4.00-5.40); WHITE BLOOD COUNT 6.4 10^3/uL (4.0-10.0)
[2019-09-09 07:22] LABS: ALBUMIN 2.9 GM/DL (3.2-5.2); ALT/SGPT 23 U/L (12-78); BILIRUBIN,TOTAL 0.3 MG/DL (0.2-1.0); BLOOD UREA NITROGEN 11 MG/DL (7-18); CALCIUM LEVEL 8.8 MG/DL (8.5-10.1); CARBON DIOXIDE LEVEL 25 MEQ/L (21-32); CHLORIDE LEVEL 109 MEQ/L (98-107); CREATININE FOR GFR 0.92 MG/DL (0.55-1.30); GLOMERULAR FILTRATION RATE > 60.0 (>58); GLUCOSE, FASTING 95 MG/DL (70-100); MAGNESIUM LEVEL 1.8 MG/DL (1.8-2.4); POTASSIUM SERUM 4.4 MEQ/L (3.5-5.1); SODIUM LEVEL 141 MEQ/L (136-145); TOTAL PROTEIN 5.8 GM/DL (6.4-8.2)
[2019-09-09] MEDS: FOLIC ACID 1 MG TAB PO SCH (08:34)
[2019-09-09] MEDS: MULTIVITAMINS/MINERALS THERAP 1 TAB PO SCH (08:34)
[2019-09-09] MEDS: THIAMINE 100 MG TAB PO SCH (08:34)
[2019-09-09] MEDS: HEPARIN SOD (PORCINE) 5000UNITS/ML 1ML VIAL/SYRINGE SC SCH (08:35)
[2019-09-09] MEDS ORDERED: CIPR-249 PO (10:00)
--- NOTE | 2019-09-09 11:28 | DS.PDOC ---
Discharge Summary General Date of Admission Sep 07, 2019 at 21:34 Date of Discharge 09/09/19 Discharge Summary PROCEDURES PERFORMED DURING STAY: None. ADMITTING DIAGNOSES: 1. Substance abuse, altered mental status. DISCHARGE DIAGNOSES: 1. Toxic encephalopathy, polysubstance abuse. COMPLICATIONS/CHIEF COMPLAINT: Drug Abuse. HISTORY OF PRESENT ILLNESS: Patient is 49 years old female with past medical h istory of substance abuse presented to the hospital with altered mental status secondary to intoxication. According to family patient developed bizarre behavior in the evening, she became agitated and talked nonsense. She was brought to the emergency room where she was agitated and restless. Patient was sedated with Haldol and Benadryl. Also she received a dose of Narcan. When I saw patient she was somnolent and not follows commands. Patient was found to have positive U tox for opioids, amphetamines and benzodiazepines. HOSPITAL COURSE: Patient was admitted with the altered mental status secondary to toxic encephalopathy secondary to polysubstance abuse. Patient was sedated in the emergency room with Haldol and Benadryl also receive a dose of Narcan. When I examined patient yesterday. She is still was somnolent but it is started eating food has IV fluids were discontinued and she was started on regular diet and she was monitored overnight. Patient did not develop any symptoms of withd umu. She is comfortable, very cooperative and her laboratory work is essentially within normal limits and she'll be discharged home today. Extensive drug abuse. Counseling was done at the bedside and she understands that she has to seek help with some community-based drug rehabilitation as outpatient. DISCHARGE MEDICATIONS: Please see below. ALLERGIES: Please see below. PHYSICAL EXAMINATION ON DISCHARGE: VITAL SIGNS: Please see below. GENERAL: Within normal limits HEENT: PERRLA. Extraocular muscles intact NECK: Within normal limits CARDIOVASCULAR EXAMINATION: S1, S2, regular RESPIRATORY EXAMINATION: Clear to A&P ABDOMINAL EXAMINATION: Benign EXTREMITIES: Clubbing, cyanosis, edema SKIN: Normal NEUROLOGICAL EXAMINATION: . No focal motor sensory deficit in and of deficit. Alert, oriented 3 PSYCHIATRIC EXAMINATION: Normal LABORATORY DATA: Please see below. IMAGING: CT head:IMPRESSION: 1. No CT evidence of acute intracranial pathology. 2. Additional findings, as above. PROGNOSIS: Good ACTIVITY: As tolerated. DIET: As tolerated DISCHARGE PLAN: Discharge home DISPOSITION: . Home DISCHARGE INSTRUCTIONS: 1. Follow with PCP in one week. ITEMS TO FOLLOWUP ON ON OUTPATIENT: 1. Extensive drug counseling was done. She was advised to seek help with sub stance abuse rehabilitation as an outpatient, she agreed with the plan. DISCHARGE CONDITION: Stable. TIME SPENT ON DISCHARGE: 23 minutes. Vital Signs/I&Os Vital Signs Date Time Temp Pulse Resp B/P (MAP) Pulse Ox O2 Delivery O2 Flow Rate FiO2 09/09/19 06:00 99.4 85 18 119/66 (83) 95 Room Air I&O- Last 24 Hours up to 6 AM 09/09/19 06:00 Intake Total 3300 ml Output Total 875 ml Balance 2425 ml Laboratory Data Labs 24H Laboratory Tests 2 09/08/19 18:28: Urine Color DELMER, Urine Appearance CLOUDYH, Urine pH 5.0, Urine Specific [place] 1.025, Urine Protein 1+H, Urine Glucose (UA) NEGATIVE, Urine Ketones TRACEH, Urine Blood NEGATIVE, Urine Nitrite NEGATIVE, Urine Bilirubin NEGATIVE, Urine Urobilinogen 0.2, Urine Leukocyte Esterase NEGATIVE, Urine WBC (Auto) 11H, Urine RBC (Auto) 23H, Urine Hyaline Casts (Auto) 0, Urine Bacteria (Auto) 1+H, Urine Squamous Epithelial Cells 3, Urine Mucus (Auto) LARGE, Urine Sperm (Auto) 09/09/19 06:05: Immature Granulocyte % (Auto) 0.2, Neutrophils (%) (Auto) 46.4, Lymphocytes (%) (Auto) 40.1, Monocytes (%) (Auto) 6.7H, Eosinophils (%) (Auto) 6.1H, Basophils (%) (Auto) 0.5, Neutrophils # (Auto) 3.0, Lymphocytes # (Auto) 2.6, Monocytes # (Auto) 0.4, Eosinophils # (Auto) 0.4, Basophils # (Auto) 0.0, Nucleated Red Blood Cells % (auto) 0.0, Anion Gap 7L, Glomerular Filtration Rate > 60.0, Calcium Level 8.8, Magnesium Level 1.8, Total Bilirubin 0.3, Aspartate Amino Transf (AST/SGOT) 19, Alanine Aminotransferase (ALT/SGPT) 23, Alkaline Phosphatase 93, Total Protein 5.8#L, Albumin 2.9#L, Albumin/Globulin Ratio 1.0L CBC/BMP Laboratory Tests 09/09/19 06:05 Microbiology Microbiology 09/08/19 Urine Culture, Received Pending 09/08/19 Blood Culture - Preliminary, Resulted No growth after 24 hours . All specim... Discharge Medications Scheduled Amitriptyline HCl (Amitriptyline HCl) 25 Mg Tablet, 25 MG PO QPM, (Reported) Atorvastatin Calcium (Atorvastatin Calcium) 10 Mg Tablet, 10 MG PO DAILY, (Reported) Celecoxib (Celecoxib) 400 Mg Capsule, 400 MG PO BID, (Reported) Ciprofloxacin HCl (Cipro) 500 Mg Tablet, 500 MG PO BID@,18 Dextroamphetamine/Amphetamine (Adderall Xr 30 mg Capsule) 30 Mg Cap.er.24h, 30 MG PO DAILY, (Reported) Duloxetine Hcl (Duloxetine HCl) 60 Mg Capsule.dr, 60 MG PO DAILY, (Reported) Gabapentin (Gabapentin) 400 Mg Capsule, 400 MG PO TID, (Reported) Omeprazole (Omeprazole) 40 Mg Capsule.dr, 40 MG PO DAILY, (Reported) Rizatriptan Benzoate (Rizatriptan) 10 Mg Tab.rapdis, 10 MG PO ASDIRECTED, (Reported) Scheduled PRN Baclofen (Baclofen) 20 Mg Tablet, 20 MG PO QID PRN for MUSCLE SPASMS, (Reported) Clonazepam (Clonazepam) 1 Mg Tablet, 1 MG PO BID PRN for ANXIETY/AGITATION, (Reported) Tramadol HCl (Tramadol HCl) 50 Mg Tablet, 50 MG PO Q4H PRN for pain, (Reported) Allergies Coded Allergies: No Known Drug Allergies (Verified Allergy, Unknown, 09/08/19) JUAN LUIS BENEDICT MD Sep 09, 2019 11:28
[2020-01-18] MEDS ORDERED: AMIT25TA17 PO (07:37)
== END 2019-09-09 12:17 | disposition home or self-care (01) ==
LOC: M ED 21:33 → EDBD 21:33 → M ED INP 21:34 → MERGE 21:34 → ENRESERV 09-08 03:20 → M MSPAV 09-08 04:01
PROVIDERS: ADMIT Internal Medicine; ATTEND Internal Medicine
DX: G92 Toxic encephalopathy (principal); F19.20 Other psychoactive substance dependence, uncomplicated; D72.829 Elevated white blood cell count, unspecified; Z79.899 Other long term (current) drug therapy
CPT/HCPCS: 36415; 70450; 80048; 80053; 80076; 80307; 81001; 82550; 83735; 84436; 84443; 84479; 85025; 87040; 87086; 96361; 96372; 96374; 96375; 99285; G0480; J1200; J1630; J1644; J2310; J2405

== ENCOUNTER → 2019-09-20 | Outpatient (REF) | payer OTHER ==
[~2019-09-20] MED LIST changes: +ADDE30CA3 PO; +ADDE30TA PO; +AMIT10TA PO; +AMIT25TA PO; -AMIT25TA17 PO; +ATOR1TAB19 PO; +BACLOFEN PO; +CELE1CAP11 PO; +CETI-24 PO; +CIPR-249 PO; +CLON0.5T17 PO; +CLON1TAB8 PO; +COMMENTS; +DULO1CAP6 PO; +DULO60CA35 PO; +GABA-845 PO; +OMEP-221 PO; +PATIENT COMMENT; +RIZA10TA58 PO; +SETL1TAB PO
[2019-09-20 15:14] LABS: APPEARANCE, URINE CLEAR (CLEAR); BACTERIA, URINE AUTO 1+ (NEGATIVE); BILIRUBIN, URINE AUTO NEGATIVE (NEGATIVE); BLOOD, URINE BLOOD NEGATIVE (NEGATIVE); COLOR, URINE YELLOW (YELLOW); GLUCOSE, URINE (UA) AUTO NEGATIVE (NEGATIVE); KETONE, URINE AUTO NEGATIVE (NEGATIVE); LEUKOCYTE ESTERASE, URINE AUTO NEGATIVE (NEGATIVE); NITRITE, URINE AUTO NEGATIVE (NEGATIVE); PROTEIN, URINE AUTO NEGATIVE (NEGATIVE); RBC, URINE AUTO 1 /HPF (0-3); SPECIFIC GRAVITY URINE AUTO 1.014 (1.002-1.035); SQUAMOUS EPITHELIAL CELL UR AU 1 /HPF (0-6); UROBILINOGEN, URINE AUTO 0.2 mg/dL (0.0-2.0); WBC, URINE AUTO 1 /HPF (0-3)
== END ==
LOC: M LAB REF 14:31
PROVIDERS: ATTEND Physician Assistant Medical
DX: N39.0 Urinary tract infection, site not specified (principal)

== ENCOUNTER 2020-01-18 00:39 | Inpatient (IN) | payer OTHER ==
[~2020-01-18] VITALS: Ht 167.6 cm; Wt 98.8 kg
[~2020-01-18 00:39] MED LIST changes: -ADDE30TA PO; -AMIT10TA PO; -CETI-24 PO; -CLON0.5T17 PO; -DULO60CA35 PO; -PATIENT COMMENT; -SETL1TAB PO
[2020-01-18] MEDS ORDERED: NALOXONE INJ 0.4MG/1ML VIAL (J2310 PER 1MG) IV ONE (01:00)
[2020-01-18] MEDS ORDERED: diphenhydrAMINE 50MG/ML VIAL (J1200) IM ONE (01:00)
[2020-01-18] MEDS ORDERED: HALOPERIDOL 5MG/ML VIAL (J1630 PER 1) IM ONE (01:00)
[2020-01-18] MEDS ORDERED: NS 1,000 ML IV ONE (01:00)
[2020-01-18] MEDS ORDERED: LORazepam 2 MG/ML VIAL IM ONE (01:00)
[2020-01-18 01:12] LABS: BASO # 0.1 10^3/uL (0.0-0.2); BASO % 0.4 % (0.0-1.0); EOS # 0.3 10^3/uL (0.0-0.5); HEMATOCRIT 43.1 % (36.0-47.0); HEMOGLOBIN 13.7 g/dl (12.0-15.5); LYMPH # 3.6 10^3/uL (1.5-5.0); LYMPH % 20.7 % (24.0-44.0); MEAN CORPUSCULAR HEMOGLOBIN 27.3 pg (27.0-33.0); MEAN CORPUSCULAR HGB CONC 31.8 g/dl (32.0-36.5); MONO # 1.4 10^3/uL (0.0-0.8); MONO % 7.8 % (0.0-5.0); NEUTROPHILS # 11.8 10^3/uL (1.5-8.5); NEUTROPHILS % 68.5 % (36.0-66.0); PLATELET COUNT, AUTOMATED 419 10^3/uL (150-450); RED BLOOD COUNT 5.01 10^6/uL (4.00-5.40); WHITE BLOOD COUNT 17.3 10^3/uL (4.0-10.0)
[2020-01-18 01:43] LABS: ACETAMINOPHEN LEVEL < 2.0 UG/ML (10.0-30.0); ALBUMIN 3.7 GM/DL (3.2-5.2); ALT/SGPT 17 U/L (12-78); BILIRUBIN,DIRECT < 0.1 MG/DL (0.0-0.2); BILIRUBIN,TOTAL 0.2 MG/DL (0.2-1.0); BLOOD UREA NITROGEN 21 MG/DL (7-18); CALCIUM LEVEL 9.9 MG/DL (8.5-10.1); CARBON DIOXIDE LEVEL 27 MEQ/L (21-32); CHLORIDE LEVEL 107 MEQ/L (98-107); CREATININE FOR GFR 1.11 MG/DL (0.55-1.30); ETHYL ALCOHOL (ETHANOL) < 0.003 % (0.000-0.010); GLOMERULAR FILTRATION RATE 55.6 (>58); GLUCOSE, FASTING 104 MG/DL (70-100); POTASSIUM SERUM 4.6 MEQ/L (3.5-5.1); SALICYLATE LEVEL < 1.7 MG/DL (5.0-30.0); SODIUM LEVEL 140 MEQ/L (136-145); TOTAL PROTEIN 7.1 GM/DL (6.4-8.2)
[2020-01-18] MEDS ORDERED: TRAM50TA2 PO (01:55)
[2020-01-18] MEDS ORDERED: CLON0.5T17 PO (01:55)
[2020-01-18] MEDS ORDERED: ADDE30CA3 PO (01:55)
--- NOTE | 2020-01-18 02:03 | REPVR ---
PROCEDURE INFORMATION: Exam: XR Chest, 1 View Exam date and time: 01/18/20 (1:03am) Age: 49 years old Clinical indication: AMS TECHNIQUE: Imaging protocol: Portable CXR Views: 1 view COMPARISON: Chest films of 05/19/17 FINDINGS: Lungs: Unremarkable. No consolidation. Pleural space: Unremarkable. No pleural effusions. No pneumothorax. Heart/Mediastinum: Unremarkable. No cardiomegaly. Bones/joints: Unremarkable. Soft tissues: Prominent breast shadows. IMPRESSION: No acute findings. The lung valadez remain clear. Electronically signed by: Brea Kellogg On 01/18/2020 02:02:48 AM
[2020-01-18 02:10] LABS: CPK CREATINE PHOSPHOKINASE 183 U/L (26-192)
--- NOTE | 2020-01-18 02:38 | REPVR ---
PROCEDURE INFORMATION: Exam: CT Head without Contrast Exam date and time: 01/18/20 (2:25am) Age: 49 years old Clinical indication: Altered mental status /memory loss TECHNIQUE: Imaging protocol: Computed tomography of the head without contrast. Radiation optimization: All CT scans at this facility use at least one of these dose optimization techniques: automated exposure control; mA and/or kV adjustment per patient size (includes targeted exams where dose is matched to clinical indication); or iterative reconstruction. COMPARISON: No relevant prior studies available. FINDINGS: Brain: Unremarkable. No acute hemorrhage. Unremarkable white matter. No mass effect. Cerebral ventricles: No ventriculomegaly. Bones/joints: Unremarkable. No acute fracture. Paranasal sinuses: Visualized sinuses are unremarkable. No air-fluid levels. Mastoid air cells: Visualized mastoid air cells are well aerated. Soft tissues: Unremarkable. IMPRESSION: No acute intracranial pathology is appreciated. Electronically signed by: Brea Kellogg On 01/18/2020 02:38:25 AM
[2020-01-18 02:56] LABS: AMPHETAMINES LEVEL URINE POSITIVE (NEGATIVE); BARBITURATES URINE NEGATIVE (NEGATIVE); BENZODIAZEPINES URINE POSITIVE (NEGATIVE); CANNABINOIDS URINE NEGATIVE (NEGATIVE); COCAINE METABOLITE URINE NEGATIVE (NEGATIVE); METHADONE URINE NEGATIVE (NEGATIVE); OPIATES URINE NEGATIVE (NEGATIVE); PHENCYCLIDINE URINE NEGATIVE (NEGATIVE)
[2020-01-18] MEDS ORDERED: NALOXONE 2MG/2ML SYRINGE (J2310 PER 1MG) As Ordered ONE (03:31)
[2020-01-18] MEDS ORDERED: METAL LOCK LOOP XX ONE (03:32)
[2020-01-18] MEDS ORDERED: NS 2,000 ML in IV 1 EA IV ONE (04:15)
[2020-01-18 06:22] LABS: BASO % 0.3 % (0.0-1.0); EOS # 0.2 10^3/uL (0.0-0.5); EOS % 1.6 % (0.0-3.0); HEMATOCRIT 36.7 % (36.0-47.0); LYMPH # 1.8 10^3/uL (1.5-5.0); LYMPH % 16.2 % (24.0-44.0); MEAN CORPUSCULAR HEMOGLOBIN 27.1 pg (27.0-33.0); MEAN CORPUSCULAR HGB CONC 31.3 g/dl (32.0-36.5); MEAN CORPUSCULAR VOLUME 86.4 fl (80.0-96.0); MONO # 0.8 10^3/uL (0.0-0.8); MONO % 7.1 % (0.0-5.0); NEUTROPHILS # 8.3 10^3/uL (1.5-8.5); NEUTROPHILS % 74.4 % (36.0-66.0); PLATELET COUNT, AUTOMATED 346 10^3/uL (150-450); RED BLOOD COUNT 4.25 10^6/uL (4.00-5.40); WHITE BLOOD COUNT 11.2 10^3/uL (4.0-10.0)
[2020-01-18 06:26] LABS: HEMOGLOBIN 11.5 g/dl (12.0-15.5)
[2020-01-18] MEDS ORDERED: D5W/0.45% SODIUM CHLORIDE 1,000 ML IV ONE (07:30)
[2020-01-18] MEDS ORDERED: ADDE30TA PO (07:37)
[2020-01-18] MEDS ORDERED: AMIT10TA PO (07:37)
[2020-01-18] MEDS ORDERED: CETI-24 PO (07:37)
[2020-01-18] MEDS ORDERED: CLON1TAB8 PO (07:37)
[2020-01-18] MEDS ORDERED: SETL1TAB PO (07:37)
[2020-01-18] MEDS ORDERED: AMIT25TA PO (07:37)
[2020-01-18] MEDS ORDERED: DULO60CA35 PO (07:37)
[2020-01-18] MEDS ORDERED: PATIENT COMMENT (07:40)
[2020-01-18 09:00] VITALS: BP 115/67
--- NOTE | 2020-01-18 09:33 | ECGEPIP ---
[facility] - ED Test Date: 2020-01-18 Pat Name: GENNARO OSEI Department: Room: - Gender: Female Lugger: araceli rn : 1970 Requested By: JULITO Hassan Order Number: [id number] Reading MD: Adán Aggarwal Measurements Intervals [place] Rate: 89 P: 67 SD: 183 QRS: 56 QRSD: 87 T: 58 QT: 371 QTc: 454 Interpretive Statements SINUS RHYTHM SIMILAR TO 05/19/17 Electronically Signed on 01-18-2020 9:32:51 EST by Adán Aggarwal
[2020-01-18] MEDS: D5W/0.45% SODIUM CHLORIDE 1,000 ML IV SCH ×2 (10:00→19:02)
[2020-01-18] MEDS: ENOXAPARIN 40MG/0.4ML SYRINGE (J1650 PER 10MG) SC SCH (10:02)
[2020-01-18 11:00] LABS: BLOOD UREA NITROGEN 14 MG/DL (7-18); CALCIUM LEVEL 8.2 MG/DL (8.5-10.1); CARBON DIOXIDE LEVEL 27 MEQ/L (21-32); CHLORIDE LEVEL 112 MEQ/L (98-107); CREATININE FOR GFR 0.77 MG/DL (0.55-1.30); GLOMERULAR FILTRATION RATE > 60.0 (>58); GLUCOSE, FASTING 107 MG/DL (70-100); POTASSIUM SERUM 4.2 MEQ/L (3.5-5.1); SODIUM LEVEL 142 MEQ/L (136-145)
[2020-01-18 12:00] VITALS: BP 110/63
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
[2020-01-18 16:00] VITALS: BP 120/58
[2020-01-18 18:33] VITALS: BP 111/69
[2020-01-18 20:00] VITALS: BP 137/75
[2020-01-19 05:54] LABS: HEMATOCRIT 38.1 % (36.0-47.0); HEMOGLOBIN 12.1 g/dl (12.0-15.5); MEAN CORPUSCULAR HEMOGLOBIN 27.5 pg (27.0-33.0); MEAN CORPUSCULAR HGB CONC 31.8 g/dl (32.0-36.5); MEAN CORPUSCULAR VOLUME 86.6 fl (80.0-96.0); PLATELET COUNT, AUTOMATED 337 10^3/uL (150-450); WHITE BLOOD COUNT 6.3 10^3/uL (4.0-10.0)
[2020-01-19 06:00] VITALS: BP 131/75
[2020-01-19 06:33] LABS: BLOOD UREA NITROGEN 11 MG/DL (7-18); CALCIUM LEVEL 8.5 MG/DL (8.5-10.1); CARBON DIOXIDE LEVEL 24 MEQ/L (21-32); CHLORIDE LEVEL 109 MEQ/L (98-107); CREATININE FOR GFR 0.72 MG/DL (0.55-1.30); FREE T4 0.83 NG/DL (0.76-1.46); GLOMERULAR FILTRATION RATE > 60.0 (>58); GLUCOSE, FASTING 103 MG/DL (70-100); POTASSIUM SERUM 4.3 MEQ/L (3.5-5.1); SODIUM LEVEL 140 MEQ/L (136-145)
[2020-01-19] MEDS ORDERED: ENOXAPARIN 40MG/0.4ML SYRINGE (J1650 PER 10MG) SC SCH (09:00)
[2020-01-19 14:00] VITALS: BP 138/91
[2020-01-19] MEDS ORDERED: LIDOCAINE 5% (LIDODERM) PATCH TD ONE (15:00)
[2020-01-19 19:26] LABS: FREE T3 2.8 PG/ML (2.2-4.0)
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
[2020-01-20] MEDS ORDERED: **NOTE PATIENT COMMENT** MISC XX ONE (03:00)
== END 2020-01-19 17:58 | disposition home or self-care (01) | DRG 812 ==
LOC: M ED 00:39 → M ED INP 07:51 → ENRESERV 08:15 → M ICU 08:57 → M MSPAV 18:28
PROVIDERS: ADMIT Internal Medicine; ATTEND Internal Medicine
DX: T42.4X2A Poisoning by benzodiazepines, intentional self-harm, initial encounter (principal); G92 Toxic encephalopathy; Z79.899 Other long term (current) drug therapy; F43.10 Post-traumatic stress disorder, unspecified; I10 Essential (primary) hypertension; F41.9 Anxiety disorder, unspecified; K21.9 Gastro-esophageal reflux disease without esophagitis; G43.909 Migraine, unspecified, not intractable, without status migrainosus; M54.5 Low back pain; F32.9 Major depressive disorder, single episode, unspecified

== ENCOUNTER → 2020-07-07 | Outpatient (CLI) | payer MEDICAID, OTHER ==
[~2020-07-07] MED LIST changes: +ADDE30TA PO; +AMIT10TA7 PO; -AMIT25TA PO; +AMIT25TA17 PO; +CETI-24 PO; +CLON0.5T17 PO; +DULO60CA35 PO; +PATIENT COMMENT; +SETL1TAB PO
--- NOTE | 2020-07-07 13:54 | REPMRS ---
Patient History The patient states she had a clinical breast exam in February 2020. No known family history of cancer. Taking hormonal contraceptives for 19 years. Patient states no new breast complaints. Patient has signed the MRS history sheet. Digital Woman Screen Mammo: July 07, 2020 - Exam #: [id number] Bilateral CC and MLO view(s) were taken. Technologist: Soco Drew, Technologist Prior study comparison: May 05, 2019, bilateral digital woman screen mammo performed at [facility]. February 19, 2018, bilateral digital mammo screening bilat, performed at [facility]. FINDINGS: There are scattered fibroglandular densities. Screening. Digital screening (2D) mammography was performed bilaterally in the CC and MLO projections. Additionally, breast tomosynthesis (3D mammography) was performed bilaterally in the CC and MLO projections. Todays exam was compared to the prior exams(s). By history, the patient has no complaints of a palpable breast abnormality or other significant breast complaints. The breasts are unchanged in size and shape. There are no shirley-soft tissue densities or spiculated masses. There is no internal architectural distortion. There are no suspicious shirley-calcific clusters. Skin thickening or nipple retraction is not present. IMPRESSION: BI-RADS Category 2- Benign Findings(s). There is no evidence of malignant alteration of the breasts. Followup examination recommended in one year. The Volpara volumetric breast density category is B, there are scattered areas of fibroglandular density. This mammogram was read with the assistance of [employer]ov[place],an FDA approved computer aided detection system for mammography. The lifetime Tyrer-Cuzick score is 12.6 % Negative x-ray reports should not delay surgical consultation if a dominant or clinically suspicious mass is present. Not all breast cancers can be identified by mammography. Therefore, we recommend that you continue to perform regular breast self-examination and physical examination and then promptly contact your physician of any concerns or changes. Adenosis and dense breasts may obscure an underlying neoplasm. Assessment: BI-RADS/ACR category 2 mammogram. Benign Findings. Recommendation Routine screening mammogram of both breasts in 1 year. Electronically Signed By: Sinan Smith DO 07/07/20 1993
== END ==
LOC: M WHC 12:54
PROVIDERS: ATTEND Physician Assistant
DX: Z12.31 Encounter for screening mammogram for malignant neoplasm of breast (principal); Z92.0 Personal history of contraception

== ENCOUNTER → 2022-05-31 | Outpatient (CLI) | payer OTHER ==
[~2022-05-31] MED LIST changes: -CYMB60CA3 PO; +CYMB60CA4 PO; +GABA-283 PO; -GABA-845 PO; -OMEP-221 PO; +OMEP40CA4 PO; +OMEP40CA5 PO; -OMEP40CA97 PO
== END ==
LOC: M LABSMTC 09:00
PROVIDERS: ATTEND Anesthesiology
DX: Z01.812 Encounter for preprocedural laboratory examination (principal)

== ENCOUNTER → 2022-06-04 | Outpatient (REF) | payer OTHER ==
[2022-06-04 18:06] LABS: HEMATOCRIT 40.4 % (36.0-47.0); HEMOGLOBIN 12.7 g/dl (12.0-15.5); MEAN CORPUSCULAR HEMOGLOBIN 27.5 pg (27.0-33.0); MEAN CORPUSCULAR HGB CONC 31.4 g/dl (32.0-36.5); MEAN CORPUSCULAR VOLUME 87.6 fl (80.0-96.0); PLATELET COUNT, AUTOMATED 367 10^3/uL (150-450); RED BLOOD COUNT 4.61 10^6/uL (4.00-5.40); WHITE BLOOD COUNT 7.9 10^3/uL (4.0-10.0)
[2022-06-04 18:14] LABS: BLOOD UREA NITROGEN 24 MG/DL (9-23); CALCIUM LEVEL 9.7 MG/DL (8.5-10.1); CARBON DIOXIDE LEVEL 28 MMOL/L (20-31); CHLORIDE LEVEL 102 MMOL/L (98-107); CHOLESTEROL LEVEL 203 MG/DL (<200); CHOLESTEROL RISK RATIO 3.69 (<5); CREATININE FOR GFR 0.76 MG/DL (0.55-1.30); FOLLICLE STIMULATING HORMONE 0.8 mIU/ML; GLOMERULAR FILTRATION RATE > 60.0 (>51); GLUCOSE, FASTING 78 MG/DL (60-100); HDL CHOLESTEROL 54.9 MG/DL (>40); LDL CHOLESTEROL 124.1 MG/DL (<100); LUTEINIZING HORMONE < 0.1 mIU/ML; NON-HDL-C 148.1 MG/DL; POTASSIUM SERUM 4.1 MMOL/L (3.5-5.1); SODIUM LEVEL 135 MMOL/L (136-145); TRIGLYCERIDES LEVEL 120 MG/DL (<150)
[2022-06-04 18:15] LABS: PROGESTERONE 0.22 NG/ML
== END ==
LOC: M LAB REF 16:27
PROVIDERS: ATTEND Physician Assistant
DX: Z13.1 Encounter for screening for diabetes mellitus (principal); Z13.228 Encounter for screening for other metabolic disorders; N91.2 Amenorrhea, unspecified; N95.9 Unspecified menopausal and perimenopausal disorder; E78.5 Hyperlipidemia, unspecified; Z79.899 Other long term (current) drug therapy

== ENCOUNTER 2022-06-05 09:21 | Day surgery (SDC) | payer OTHER ==
[~2022-06-05] VITALS: Ht 162.6 cm; Wt 81.6 kg
[~2022-06-05 09:21] MED LIST changes: +NS 1,000 ML IV ONE
[2022-06-05] MEDS ORDERED: LIDOCAINE 2% 100MG/5ML SDV (FOR ANES.) As Ordered ONE (10:39)
[2022-06-05] MEDS ORDERED: propofoL 200 MG/20 ML VIAL As Ordered ONE (10:39)
[2022-06-05 11:59] VITALS: BP 132/78
== END 2022-06-05 12:40 | disposition home or self-care (01) ==
LOC: M OPP 09:21
PROVIDERS: ATTEND Surgery
DX: Z12.11 Encounter for screening for malignant neoplasm of colon (principal); Q43.8 Other specified congenital malformations of intestine; K21.9 Gastro-esophageal reflux disease without esophagitis; F90.9 Attention-deficit hyperactivity disorder, unspecified type; F32.9 Major depressive disorder, single episode, unspecified; F41.9 Anxiety disorder, unspecified; Z79.891 Long term (current) use of opiate analgesic; Z79.899 Other long term (current) drug therapy; Z87.820 Personal history of traumatic brain injury

== ENCOUNTER → 2022-06-20 | Outpatient (CLI) | payer OTHER ==
[~2022-06-20] MED LIST changes: -NS 1,000 ML IV ONE
== END ==
LOC: M WHC 14:32
PROVIDERS: ATTEND Physician Assistant
DX: Z12.31 Encounter for screening mammogram for malignant neoplasm of breast (principal); Z92.0 Personal history of contraception

== ENCOUNTER → 2022-09-09 | Outpatient (CLI) | payer OTHER | LOC: M WUC 14:59 | PROVIDERS: ATTEND Physician Assistant | DX: G89.29 Other chronic pain (principal) ==

== ENCOUNTER → 2023-05-22 | Outpatient (REF) | payer OTHER ==
[~2023-05-22] MED LIST changes: -AMIT25TA17 PO; +AMIT25TA19 PO; +CELE1CAP PO; -CELE1CAP11 PO; -GABA-283 PO; +GABA-284 PO
== END ==
LOC: M LAB REF 16:14
PROVIDERS: ATTEND Physician Assistant
DX: Z79.899 Other long term (current) drug therapy (principal)

== ENCOUNTER → 2023-06-13 | Outpatient (REF) | payer OTHER ==
[2023-06-13 17:00] LABS: FOLLICLE STIMULATING HORMONE 15.9 mIU/ML; LUTEINIZING HORMONE 4.4 mIU/ML; THYROID STIMULATING HORMONE 5.623 uIU/ML (0.55-4.78)
[2023-06-13 17:09] LABS: PROGESTERONE < 0.21 NG/ML
== END ==
LOC: M LAB REF 16:11
PROVIDERS: ATTEND Physician Assistant
DX: N91.2 Amenorrhea, unspecified (principal); N95.9 Unspecified menopausal and perimenopausal disorder

== ENCOUNTER → 2023-08-07 | Outpatient (REF) | payer OTHER | LOC: M LAB REF 17:14 | PROVIDERS: ATTEND Physician Assistant | DX: E03.9 Hypothyroidism, unspecified (principal) ==

== ENCOUNTER → 2024-02-23 | Outpatient (CLI) | payer OTHER ==
[~2024-02-23] MED LIST changes: -CELE1CAP88 PO; +CELE400C PO; +GABA-1490 PO; -GABA600T4 PO
== END ==
LOC: M WUC 10:26
PROVIDERS: ATTEND Physician Assistant
DX: E03.9 Hypothyroidism, unspecified (principal)